=== PATIENT | female | born 1950 | race Caucasian/White ===

== ENCOUNTER → 2018-07-28 | Outpatient (CLI) | payer BC | LOC: MC.RAD 14:40 | DX: Z12.31 Encounter for screening mammogram for malignant neoplasm of breast (principal); N63.10 Unspecified lump in the right breast, unspecified quadrant ==

== ENCOUNTER → 2018-08-05 | Outpatient (CLI) | payer BC | LOC: MC.RAD 08:56 | DX: N60.01 Solitary cyst of right breast (principal) | CPT/HCPCS: G0279 ==